=== PATIENT | male | born 1945 | race Caucasian/White ===

== ENCOUNTER → 2018-11-05 | Outpatient (CLI) | payer MEDICARE, OTHER ==
[~2018-11-05] MED LIST: ASPI-825 PO; BENZ1TAB70 GT; CRAN475C2 PO; HALO5TAB PO; LEVO125T4 PO; LITH300T4 PO; MULT1TAB70 PO; OLAN20TA5 PO; PARO20TA24 PO; SENN-176 PO
== END | disposition home or self-care (01) ==
LOC: RADPV 14:49
PROVIDERS: ATTEND Internal Medicine
DX: M25.552 Pain in left hip (principal); M79.652 Pain in left thigh
CPT/HCPCS: 73503; 73552